=== PATIENT | female | born 1985 | race Caucasian/White ===

== ENCOUNTER → 2017-01-10 | Outpatient (CLI) | payer OTHER ==
--- NOTE | 2017-01-15 09:17 | MR ---
EXAMINATION TYPE: MR brain wo con DATE OF EXAM: 01/10/2017 COMPARISON: 02/11/2016 HISTORY: Headaches T1-weighted sagittal, T2, FLAIR, and diffusion axial, and T2 coronal coronal views of the brain are s ubmitted. There is no evidence of acute ischemia. The ventricles, basal cisterns, and sulci overlying the conv exities are consistent with the patient's age. There is no mass effect. Craniocervical junction demonstrates low-lying cerebellar tonsils without evidence of discrete Chiari malformation. Sella turcica has a normal appearance. No cerebellopontine angle mass. There are multiple areas of abnormal signal involving the left frontal and posterior left temporal lo be. Abnormal signal in the right cerebellar hemisphere. Abnormal signal in the bilateral occipital lo be and bilateral centrum semiovale. Abnormal signal within the frontal lobe and parietal lobes and la teral are again noted. IMPRESSION: 1. No acute intracranial process. No acute ischemia. 2. Multiple areas of abnormal signal are again noted in the previously described areas compatible wit h remote ischemia.
== END | disposition home or self-care (01) ==
LOC: RADMRIMAIN 20:45
PROVIDERS: ATTEND Nurse Practitioner Acute Care
DX: R93.0 Abnormal findings on diagnostic imaging of skull and head, not elsewhere classified (principal); R51 Headache; M54.5 Low back pain
CPT/HCPCS: 70551

== ENCOUNTER → 2017-01-11 | Outpatient (CLI) | payer OTHER ==
--- NOTE | 2017-01-11 23:22 | MR ---
EXAMINATION TYPE: MR lumbar spine wo con DATE OF EXAM: 01/11/2017 COMPARISON: CT abdomen pelvis dated 03/11/2015 HISTORY: Low back pain x3 years TECHNIQUE: T1 and T2 axial and sagittal images of the lumbar spine are submitted. FINDINGS: There is no abnormal signal seen within the visualized spinal cord or paraspinal soft tissu es. Multiple cysts are seen involving the left kidney. There is some heterogeneous signal in the post erior cortex which should be correlated with ultrasound or CT scan. Could be related to previous inte rvention. At T11-T12 is a sagittal disc bulge or protrusion not included on axial images. At T12-L1 there is no disc herniation or canal stenosis. No foraminal encroachment. At L1-2 there is no disc herniation or canal stenosis. No foraminal encroachment. Mild facet arthropa thy. At L2-3 there is mild facet arthropathy with no disc herniation or canal stenosis. No foraminal encro achment. At L3-4 there is degenerative disc disease with central disc bulging and facet arthropathy. No focal herniation or canal stenosis. Neural foramina patent. At L4-5 there is moderate degenerative disc disease with broad-based left paracentral disc herniation and moderate effacement of thecal sac. There is moderate left-sided foraminal encroachment with prob able contact with the left nerve root. At L5-S1 there is moderate degenerative disc disease with facet arthropathy. The central disc bulging but no canal stenosis. Mild bilateral foraminal encroachment IMPRESSION: 1. Left paracentral disc herniation with moderate effacement of thecal sac and left-sided moderate fo raminal encroachment L4-L5. Contact of the left nerve root suspected. 2. Disc bulging and degenerative disc disease L5-S1 with no canal stenosis. 3. Sagittal disc bulging or protrusion T11-T12. Correlate with MRI thoracic spine. This level was not included on axial images lumbar spine. 4. Heterogeneous appearance of the left kidney likely representing multiple renal cysts. More heterog eneous signal noted within the posterior cortex may be related to previous nephrostomy tube insertion . Correlate with CT or ultrasound as clinically warranted.
== END | disposition home or self-care (01) ==
LOC: RADMRIMAIN 21:17
PROVIDERS: ATTEND Nurse Practitioner Acute Care
DX: M51.37 Other intervertebral disc degeneration, lumbosacral region (principal); I63.9 Cerebral infarction, unspecified; R51 Headache
CPT/HCPCS: 72148

== ENCOUNTER → 2017-03-27 | Outpatient (CLI) | payer OTHER ==
--- NOTE | 2017-03-27 14:31 | XR ---
Abdomen HISTORY: Bilateral flank pain Frontal view of the abdomen on 2 images correlated to prior exam 03/09/2015 Double-J ureteral stent on the left is been removed. The largest calcification. This is seen on the l eft has been removed. Small calcification superimposed over the mid to lower left kidney measured regina roximately 3 to 4 mm. Bowel gas may obscure right-sided calcifications. Patient is status post fallop macario tubal ligation clips. Tampon is in place. Probable vascular calcifications within the left hemipe lvis. IMPRESSION: Left-sided nephrolithiasis. Interval stent removal. Postop changes. Exam may be somewhat limited.
== END | disposition home or self-care (01) ==
LOC: RADXRMAIN 12:00
PROVIDERS: ATTEND Physician Assistant
DX: N20.0 Calculus of kidney (principal); Z98.890 Other specified postprocedural states
CPT/HCPCS: 74000

== ENCOUNTER → 2017-04-05 | Outpatient (CLI) | payer OTHER ==
--- NOTE | 2017-04-05 15:04 | CT ---
EXAMINATION TYPE: CT abdomen pelvis wo con DATE OF EXAM: 04/05/2017 COMPARISON: 03/11/2015 HISTORY: Renal colic Examination of the solid and hollow viscera is limited given the lack of contrast. FINDINGS: LUNG BASES: No evidence for nodule. No evidence for infiltrate. LIVER/GB: The gallbladder is unremarkable. No space-occupying hepatic lesion. PANCREAS: No pancreatic mass identified. No inflammatory process seen. SPLEEN: No evidence for splenomegaly. No intrasplenic lesions seen. ADRENALS: No adrenal nodules identified. No evidence for thickening. KIDNEYS: There is renal parenchymal thinning on the left with areas of parenchymal insult. There are lower pole renal calculi noted totaling approximately 3 in number and measuring up to 7 mm. That do n ot see evidence for hydronephrosis. The right kidney demonstrates a tiny 2 mm lower pole calculus. No hydronephrosis is seen. No renal masses are detected. BOWEL: Appendix has a normal appearance. No evidence of bowel obstruction. No inflammatory process. Lymph nodes: No evidence for adenopathy greater than 1 cm. Abdominal aorta: Atheromatous changes seen. No evidence for aneurysm. Genital organs: No significant abnormality. Other: There is a fat-containing umbilical hernia. IMPRESSION: 1. PARENCHYMAL THINNING OF THE LEFT KIDNEY WITH AREAS OF RENAL PARENCHYMAL INSULT. NONOBSTRUCTING LOW ER POLE NEPHROLITHIASIS. PARAPELVIC CYSTS WOULD BE DIFFICULT TO EXCLUDE.
== END | disposition home or self-care (01) ==
LOC: RADCTMAIN 14:23
PROVIDERS: ATTEND Urology
DX: N20.0 Calculus of kidney (principal); N28.89 Other specified disorders of kidney and ureter
CPT/HCPCS: 74176

== ENCOUNTER → 2017-05-08 | Outpatient (CLI) | payer OTHER ==
--- NOTE | 2017-05-08 14:41 | XR ---
EXAMINATION TYPE: XR abdomen 1V DATE OF EXAM: 05/08/2017 COMPARISON: 04/05/2017 HISTORY: Follow-up kidney stones TECHNIQUE: One view abdominal series FINDINGS: The osseous structures are intact. The bowel gas pattern is nonspecific. Within the pelvis there is postsurgical change. The calcifications in pelvis are stable from the prev ious exam. Evaluation of the renal outlines is limited due to overlying bowel content. No definite areas of calc ification noted on the right. Suspect there remains two residual calcification overlying the lower po le of the left kidney measuring 3 to 4 mm. IMPRESSION: 1. Assessment limited due to overlying bowel content. Suspicion for 2 residual 3 to 4 mm lower pole l eft renal calculi..
== END ==
LOC: RADXRMAIN 13:52
PROVIDERS: ATTEND Urology
DX: N20.0 Calculus of kidney (principal)
CPT/HCPCS: 74000

== ENCOUNTER → 2017-06-24 | Outpatient (CLI) | payer OTHER ==
--- NOTE | 2017-06-24 10:03 | XR ---
EXAMINATION TYPE: XR KUB DATE OF EXAM: 06/24/2017 COMPARISON: 05/08/2017 HISTORY: Pain TECHNIQUE: One view abdominal series FINDINGS: Postsurgical change involving the pelvis. A number of calcifications are seen which appear to be stab le in the pelvis and likely vascular. No suspicious calcification overlying the kidneys. Bowel gas pa ttern nonspecific with no obstruction. IMPRESSION: 1. The previously noted residual lower pole calculi are not seen on today's exam overlying the left k idney. There is significant amount of bowel content which does obscure the region. 2. Calcifications in the pelvis are stable in number and size relative the previous exam. Are felt to be most likely vascular.
== END | disposition home or self-care (01) ==
LOC: RADXRMAIN 09:05
PROVIDERS: ATTEND Physician Assistant
DX: R19.8 Other specified symptoms and signs involving the digestive system and abdomen (principal); N20.0 Calculus of kidney; Z98.890 Other specified postprocedural states
CPT/HCPCS: 74000

== ENCOUNTER → 2017-08-13 | Outpatient (CLI) | payer OTHER ==
--- NOTE | 2017-08-13 23:13 | CONS ---
CONSULTATION REASON FOR CONSULTATION: Consultation note for sleep apnea. HISTORY OF PRESENT ILLNESS: 31-year-old female patient coming in for evaluation of sleep apnea. She reports that her sleep quality got worse over the past one and a half years. Note that her condition started up by having multiple CVAs, around January of 2016. This was evaluated at length locally and through the Neurology department at [facility]. 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 The patient is known to have chronic migraines. She also has history of chronic anxiety and depression. Maintained on a combination of therapy with Effexor and Xanax. She has gained at least 60-75 pounds over the past 1 and 1/2 years and since then, her sleep quality has gotten worse where she has snoring loud and she quits breathing and has been witnessed by her boyfriend. She wakes up on and off throughout the night and her sleep quality has gotten worse. She has tried to get out of bed around 9:00 am in the morning and she goes to bed around 11:00 pm. She is waking up tired and having trouble paying attention. Falling asleep during the day and she has also some issues with memory and concentration. This probably related to her previous CVAs. She used to work in [employer] and currently she is unable to work for above-mentioned reasons. She has obviously excessive daytime sleepiness. PAST MEDICAL HISTORY: 1. Multiple CVAs. 2. Migraine. 3. Anxiety/depression. 4. Obesity. 5. Hypertension. 6. Hyperlipidemia. SURGICAL HISTORY: Includes , tubal ligation, removal of a kidney stone with insertion of ureteral stents. MEDICATIONS: Include Effexor, Lipitor, Seroquel, verapamil and Xanax. SOCIAL HISTORY: The patient is a nonsmoker. No history of alcohol. No history of IV drugs. FAMILY HISTORY: Negative for obstructive sleep apnea. 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 REVIEW OF SYSTEMS: 12-point review of system was done. It is positive for weight gain. No reported history of grinding of the teeth. No sleepwalking. No palpitations. No heartburn. No restlessness in lower extremities. PHYSICAL EXAMINATION: BP is 143/83, pulse is 70, respirations 16, temperature 98 saturation 99% on room air. Weight is 223, height is 5 feet 6 inches and neck size 16 inches. BMI 52.1. [place] score 16. General appearance calm comfortable no acute distress. Head is atraumatic, normocephalic. Neck showed there is no goiter or neck masses. Mallampati class IV. LUNGS: Clear to auscultation. HEART: Sounds regular rhythm. Normal S1, S2. No S3. No murmurs. ABDOMEN: Soft, nontender. No organomegaly. EXTREMITIES: No edema. No cyanosis or clubbing. NEUROLOGIC: The patient is alert and oriented x3. She has some gait dysfunction related to previous CVAs. PSYCHIATRIC: Positive for anxiety and some low degree depression. IMPRESSION: 1. Chronic hypersomnia with an [place] score of 16. Rule out underlying obstructive sleep apnea. This is clinically suspected based on history of snoring, apneas and sleep fragmentation. 2. Bilateral tonsillar enlargement with Mallampati class 4. 3. Multiple cerebrovascular accidents drug induced. 4. Obesity with interval 25 pounds weight gain. Current BMI 52.1. 5. Migraines. 6. Anxiety/depression. 7. Hypertension. 8. Hyperlipidemia. PLAN: 1. Encourage weight loss. 2. Optimize sleep hygiene measures. 3. Maintain a regular sleep-wake cycle. 4. Proceed with a screening polysomnogram to investigate this patient for obstructive sleep apnea. MMTWYLAL / IJN: [id number] /
== END | disposition home or self-care (01) ==
LOC: SLEEP 15:53
PROVIDERS: ATTEND Internal Medicine Critical Care Medicine
DX: G47.10 Hypersomnia, unspecified (principal); J35.1 Hypertrophy of tonsils; E66.9 Obesity, unspecified; G43.909 Migraine, unspecified, not intractable, without status migrainosus; F41.9 Anxiety disorder, unspecified; F32.9 Major depressive disorder, single episode, unspecified; E78.5 Hyperlipidemia, unspecified; I10 Essential (primary) hypertension; Z68.43 Body mass index [BMI] 50.0-59.9, adult; T39.8X5A Adverse effect of other nonopioid analgesics and antipyretics, not elsewhere classified, initial encounter; Z79.899 Other long term (current) drug therapy
CPT/HCPCS: 99211

== ENCOUNTER → 2017-12-30 | Outpatient (CLI) | payer OTHER ==
--- NOTE | 2017-12-30 20:31 | MR ---
EXAMINATION TYPE: MR brain wo con DATE OF EXAM: 12/30/2017 6:00 PM COMPARISON: 01/10/2017 HISTORY: AMS Multiplanar and multispin-echo imaging of the brain was performed . The ventricles, basal cisterns and sulci overlying the cerebral convexities are within normal limits. There is no evidence for midline shift or mass effect. Acute intracranial hemorrhage or extra-axial collection is not evident. There are multiple areas of abnormal signal involving the left frontal and posterior left temporal lo be. Abnormal signal in the right cerebellar hemisphere. Abnormal signal in the bilateral occipital lo be and bilateral centrum semiovale. Abnormal signal within the frontal lobe and parietal lobes and la teral are again noted. No acute edema is identified. The paranasal sinuses and mastoid air cells are well-aerated. IMPRESSION: 1. No evidence for acute ischemia. 2. Stable areas of altered T2 FLAIR signal unchanged from prior examination compatible with remote is chemia.
== END | disposition home or self-care (01) ==
LOC: RADMRIMAIN 17:29
PROVIDERS: ATTEND Family Medicine
DX: R41.82 Altered mental status, unspecified (principal)
CPT/HCPCS: 70551

== ENCOUNTER 2024-06-17 08:21 | Day surgery (SDC) | payer MEDICARE, OTHER ==
--- NOTE | 2024-06-17 07:43 | P.GSHP ---
History of Present Illness H&P Date: 06/17/24 CHIEF COMPLAINT: GI bleed HISTORY OF PRESENT ILLNESS: The patient is a 38-year-old female who presents for for GI bleed for over 3 months including family history of colon cancer. Early colon screening has also been requested. Lower endoscopy was offered for further evaluation and management. PAST MEDICAL HISTORY: Please see list. PAST SURGICAL HISTORY: Please see list. MEDICATIONS: Please see list. ALLERGIES: Please see list. SOCIAL HISTORY: No illicit drug use FAMILY HISTORY: No reports of Crohn disease or ulcerative colitis. REVIEW OF ORGAN SYSTEMS: CONSTITUTIONAL: No reports of fevers or chills. PHYSICAL EXAM: VITAL SIGNS: Stable GENERAL: Well-developed pleasant in no acute distress. HEENT: No scleral icterus. Extraocular movements grossly intact. Moist buccal mucosa. NECK: Supple without lymphadenopathy. CHEST: Unlabored respirations. Equal bilateral excursions. CARDIOVASCULAR: Regular rate and rhythm. Distal 2+ pulses. ABDOMEN: Soft, nontender, nondistended. MUSCULOSKELETAL: No clubbing, cyanosis, or edema. ASSESSMENT: 1. Colon screen. 2. GI bleed 3. Family history colon cancer PLAN: 1. Recommend proceeding with a lower endoscopy Past Medical History Past Medical History: CVA/TIA, Hyperlipidemia, Osteoarthritis (OA), Skin Disorder Additional Past Medical History / Comment(s): hx kidney stones, short term memory issues. migraines. hx eczema, hemorrhoids with some bleeding. History of Any Multi-Drug Resistant Organisms: None Reported Past Surgical History: Section, Tubal Ligation Additional Past Surgical History / Comment(s): KIDNEY STONE REMOVED w/ stent Past Anesthesia/Blood Transfusion Reactions: Postoperative Nausea & Vomiting (PONV) Additional Past Anesthesia/Blood Transfusion Reaction / Comment(s): after lithotripsy pt woke up vomiting and then returned to hospital w/ pneumonia Smoking Status: Former smoker - Past Family History Mother Family Medical History: Diabetes Mellitus, Hyperlipidemia, Hypertension, Osteoarthritis (OA) Father Family Medical History: Hypertension Additional Family Medical History / Comment(s): KIDNEY STONES Medications and Allergies Home Medications Medication Instructions Recorded Confirmed Type Venlafaxine HCl ER [Effexor Xr] 75 mg PO DAILY 02/01/16 06/16/24 History Aspirin 325 mg PO DAILY 06/16/24 06/16/24 History Atorvastatin [Lipitor] 20 mg PO DAILY 06/16/24 06/16/24 History QUEtiapine [SEROquel] 100 mg PO DAILY 06/16/24 06/16/24 History Verapamil [Isoptin] 80 mg PO DAILY 06/16/24 06/16/24 History buPROPion HCL [buPROPion HCL Xl] 150 mg PO DAILY 06/16/24 06/16/24 History Allergies Allergy/AdvReac Type Severity Reaction Status Date / Time No Known Allergies Allergy Verified 06/16/24 10:51
[~2024-06-17 08:21] MED LIST: LACTATED RINGERS 1,000 ML IV SCH
[2024-06-17] MEDS: IV FLUID CONTINUATION 1,000 ML IV ONE (08:37)
[2024-06-17 08:42] VITALS: TEMP 98.1
[2024-06-17] MEDS ORDERED: PROPOFOL 10 MG/ML 20 ML VIAL IV ONE (08:55)
[2024-06-17] MEDS: ONDANSETRON 4 MG/2 ML VIAL IVP ONE (08:59)
--- NOTE | 2024-06-17 09:32 | P.PCN ---
Date of Procedure: 06/17/24 Description of Procedure: PREOPERATIVE DIAGNOSIS: Rectal bleeding Family history malignant colon polyps Colonoscopy screening POSTOPERATIVE DIAGNOSIS: Tubular adenoma sigmoid colon Tubular adenoma transverse colon Internal hemorrhoids, grade 4 OPERATION: Colonoscopy to the ileocecal valve and appendiceal orifice, cecum Colonoscopy with cold forceps biopsy SURGEON: Leanna Kebede MD. ANESTHESIA: MAC. INDICATIONS: The patient is an 38-year-old female who presents family history of malignant c olon polyps and rectal bleeding. Benefits and risks were described and informed consent was obtained. DESCRIPTION OF PROCEDURE: The patient had undergone GoLytely prep. The patient had been brought into the operating room and laid in the left lateral decubitus position. After adequate intravenous sedation, the rectum was examined with 2% lidocaine jelly. External hemorrhoids were encountered. The rectal tone was within normal limits. No lesions were palpated in the rectal vault. An Olympus colonoscope was advanced until the cecum, ileocecal valve and appendiceal orifice were clearly viewed. The prep was excellent. No large sigmoid diverticulosis was encountered. Abdominal pressure was used to advance the colon. Colonic polyps were found and removed. No evidence of focal colitis was found. Retroflexion of the scope demonstrated grade 4 internal hemorrhoids without active bleeding or inflammation. The colon was desufflated. The patient had tolerated the procedure well. Withdrawal time was over 6 minutes. FINDINGS: Aronchick preparation quality scale 1+ (1-5) Internal hemorrhoids, grade 4 without active bleeding External hemorrhoids, grade 4 without active bleeding No arteriovenous malformations. No large sigmoid diverticulosis Flat tubulovillous adenoma, 3 mm at mid transverse colon unable to retrieve. Removal of 1 polyps: - Snare polypectomy 20 cm from the anal verge, 5 mm tubulovillous adenoma, sigmoid colon No focal colitis. RECOMMENDATIONS: Repeat colonoscopy 3 years, 2026 due to high risk colon polyp and familial history Plan - Discharge Summary Discharge Rx Participant: No New Discharge Prescriptions: Continue Venlafaxine HCl ER [Effexor XR] 75 mg PO DAILY buPROPion HCL [buPROPion HCL Xl] 150 mg PO DAILY QUEtiapine [SEROquel] 100 mg PO DAILY Aspirin 325 mg PO DAILY Atorvastatin [Lipitor] 20 mg PO DAILY Verapamil [Isoptin] 80 mg PO DAILY Discharge Medication List Venlafaxine HCl ER [Effexor XR] 75 mg PO DAILY 06/22/16 [History] Aspirin 325 mg PO DAILY 06/16/24 [History] Atorvastatin [Lipitor] 20 mg PO DAILY 06/16/24 [History] QUEtiapine [SEROquel] 100 mg PO DAILY 06/16/24 [History] Verapamil [Isoptin] 80 mg PO DAILY 06/16/24 [History] buPROPion HCL [buPROPion HCL Xl] 150 mg PO DAILY 06/16/24 [History] [facility]Ref[facility] [place] [place] [facility] 3:00 pm Patient Instructions/Handouts: Hemorrhoids (DC), Colorectal Polyps (GEN) Activity/Diet/Wound Care/Special Instructions: Repeat colonoscopy 3 years, 2026 Discharge Disposition: HOME SELF-CARE
[2024-06-17 09:42] VITALS: BP 138/92; PULSE 78; RESP 16
== END 2024-06-17 10:11 | disposition home or self-care (01) ==
LOC: ORWHC2ENDO 08:21
PROVIDERS: ATTEND Surgery Plastic and Reconstructive Surgery
DX: Z12.11 Encounter for screening for malignant neoplasm of colon (principal); D12.5 Benign neoplasm of sigmoid colon; D12.3 Benign neoplasm of transverse colon; K64.3 Fourth degree hemorrhoids; K64.4 Residual hemorrhoidal skin tags; I10 Essential (primary) hypertension; E78.5 Hyperlipidemia, unspecified; G47.33 Obstructive sleep apnea (adult) (pediatric); Z79.82 Long term (current) use of aspirin; Z79.899 Other long term (current) drug therapy; Z87.891 Personal history of nicotine dependence; Z86.73 Personal history of transient ischemic attack (TIA), and cerebral infarction without residual deficits; Z80.0 Family history of malignant neoplasm of digestive organs
CPT/HCPCS: 81025; 88305; 45385; J2405; J2704; 45380

== ENCOUNTER → 2024-09-07 | Outpatient (CLI) | payer MEDICARE, OTHER ==
--- NOTE | 2024-09-07 18:02 | CT ---
EXAMINATION TYPE: CT brain wo con CT DLP: 1011.2 mGycm, Automated exposure control for dose reduction was used. 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 Pt states she now has electric shock type feel ings in her head that cause muscle spasms. TECHNIQUE: Brain: Multiple axial CT images of the brain were obtained without IV contrast. . Coronal and sagitta l reformats reviewed. FINDINGS: Brain: Extra-axial spaces: No abnormal extra-axial fluid collections. Ventricular system: Within normal limits Cerebral parenchyma: No acute intraparenchymal hemorrhage or mass effect. Encephalomalacia identifie d within the posterior bilateral parietal lobes and posterior left frontal lobe from prior ischemic i njury. The remaining quinones-white junction is well differentiated. Cerebellum: Unremarkable. Mass effect: No evidence of midline shift. Intracranial vasculature: unremarkable Soft tissues: Normal. Calvarium/osseous structures: No depressed skull fracture. Benign hyperostosis frontalis noted. Paranasal sinuses and mastoid air cells: Clear Visualized orbits: Orbital contents are intact. IMPRESSION: 1. No acute intracranial process. 2. Regions of encephalomalacia within the bilateral parietal lobes and left frontal lobe related to ischemic injury as seen on prior MRI. [facility], , 09/07/2024 5:59 PM
== END | disposition home or self-care (01) ==
LOC: RADCTMAIN 16:40
PROVIDERS: ATTEND Family Medicine
DX: G31.89 Other specified degenerative diseases of nervous system (principal); G93.89 Other specified disorders of brain; I67.82 Cerebral ischemia; Z86.73 Personal history of transient ischemic attack (TIA), and cerebral infarction without residual deficits
CPT/HCPCS: 70450